=== PATIENT | female | born 1980 | race Caucasian/White ===

== ENCOUNTER 2023-06-22 15:19 | Emergency (ER) | payer BC ==
[~2023-06-22] VITALS: Ht 167.6 cm; Wt 57.6 kg
[2023-06-22] MEDS: IV NS 0.9% 1,000 ML BAG IV ONE ×2 (15:57→17:07)
[2023-06-22] MEDS ORDERED: PANTOPRAZOLE 40 MG VIAL ONE (16:00)
[2023-06-22] MEDS ORDERED: ONDANSETRON HCL/PF 4 MG/2 ML VIAL ONE ×2 (16:00→18:04)
[2023-06-22] MEDS ORDERED: Thiamine 100 MG/ML VIAL ONE (16:00)
[2023-06-22 16:12] LABS: BASOPHILS # (AUTO) 0.1 K/uL (0.0-0.2); BASOPHILS % (AUTO) 0.5 % (0.0-2.0); EOSINOPHILS % (AUTO) 0.1 % (0.0-6.0); HEMATOCRIT 40 % (33-45); HEMOGLOBIN 13.4 g/dL (11.5-14.8); LYMPHOCYTES # (AUTO) 1.7 K/uL (0.8-4.8); LYMPHOCYTES % (AUTO) 13.7 % (20.0-44.0); MEAN CORPUSCULAR HEMOGLOBIN 32 PG (26.0-33.0); MEAN CORPUSCULAR HGB CONC 34 g/dl (31.0-36.0); MEAN CORPUSCULAR VOLUME 94 fL (82-100); MONOCYTES # (AUTO) 0.5 K/uL (0.1-1.30); NEUTROPHILS # (AUTO) 10.1 K/uL (1.8-8.9); NEUTROPHILS % (AUTO) 81.7 % (43.0-81.0); PLATELET COUNT (AUTO) 377 K/uL (150-450); RED BLOOD CELL COUNT(AUTO) 4.24 MIL/uL (4.0-5.2); RED CELL DISTRIBUTION WIDTH 12.6 % (11.5-15.0); WHITE BLOOD COUNT (AUTO) 12.4 K/uL (4.3-11.0)
[2023-06-22] MEDS: PANTOPRAZOLE 40 MG VIAL IV ONE (16:15)
[2023-06-22] MEDS: Thiamine 100 MG in IV D5W 50 ML IV SCH (16:15)
[2023-06-22] MEDS: ONDANSETRON HCL/PF 4 MG/2 ML VIAL IVP ONE ×2 (16:15→18:09)
[2023-06-22 16:20] LABS: CALCIUM, SERUM 8.2 mg/dL (8.5-10.1); CREATININE 0.8 mg/dL (0.6-1.3); POTASSIUM 3.5 mmol/L (3.5-5.1)
[2023-06-22 16:27] LABS: BILIRUBIN,DIRECT 0.1 mg/dL (0.0-0.2); BILIRUBIN,TOTAL 0.4 mg/dL (0.2-1.0); TOTAL PROTEIN, SERUM 7.2 g/dL (6.4-8.2)
[2023-06-22 16:38] LABS: PREGNANCY TEST URINE QUAL NEGATIVE (NEGATIVE)
[2023-06-22 16:39] LABS: APPEARANCE,URINE Clear (CLEAR); BILIRUBIN,URINE Negative (NEGATIVE); BLOOD, URINE Trace-intact Ery/uL (NEGATIVE); COLOR,URINE YELLOW (YELLOW); KETONES,URINE 15 mg/dL (NEGATIVE); LEUKOCYTE ESTERASE ,URINE Negative (NEGATIVE); NITRITE, URINE Negative (NEGATIVE); PH,URINE 8.5 (5.0-8.0); PROTEIN,URINE Negative (NEGATIVE); UGLUCOSE Negative (NEGATIVE); UROBILINOGEN,URINE 0.2 EU/dL (0.2)
[2023-06-22] MEDS ORDERED: ONDA4TAB5 PO (17:55)
[2023-06-22] MEDS ORDERED: KETOROLAC TROMETHAMINE 15 MG/ML VIAL ONE (18:04)
[2023-06-22] MEDS: KETOROLAC TROMETHAMINE 15 MG/ML VIAL IV ONE (18:09)
[2023-06-22 18:52] VITALS: BP 141/90; TEMP 98.1; O2SAT 99
== END 2023-06-22 18:53 | disposition home or self-care (01) ==
LOC: ER 16:40
DX: R11.2 Nausea with vomiting, unspecified (principal); E86.0 Dehydration; Z88.8 Allergy status to other drugs, medicaments and biological substances
CPT/HCPCS: 99284; 96365; 96361; 96375 ×3; 96376; 85025; 80048; 80076; 84703; 81003; 36415; J2405 ×2; J7060 ×2; J7030 ×2; J3411 ×2; C9113; J1885